=== PATIENT | male | born 1955 | race Two or more races ===

== ENCOUNTER → 2020-03-08 | Outpatient (CLI) | payer OTHER ==
--- NOTE | 2020-03-08 14:29 | KCIC ---
EXAM: Right knee, 3 views. HISTORY: Pain. COMPARISON: None. FINDINGS: 3 views of the right knee are obtained. There is medial compartment joint space narrowing with subchondral sclerosis and spurring. There is moderate lateral and patellofemoral compartment spurring. There is a small moderate joint effusion. IMPRESSION: 1. Moderate medial compartment predominant tricompartmental osteoarthritis of the right knee with small to moderate joint effusion. 2. No acute osseous finding. Electronically signed by: Kasia Joshua MD (03/08/2020 2:25 PM) [id number]
--- NOTE | 2020-03-08 15:04 | KCIC ---
Study: CR SHOULDER 2+V RIGHT Indication: Chronic right shoulder pain. Comparison: None. Findings: Alignment is maintained. Mild/moderate AC and mild glenohumeral joint arthrosis. Borderline narrowing of the acromiohumeral interval. Ill-defined lucency at the greater trochanter though this is favored in part related to overpenetration given relative hypoattenuation of the surrounding soft tissues as well. The overlying cortex is intact. The visualized ribs are unremarkable. Mid thoracic dextrocurvature and incompletely assessed degenerative changes of the spine. Impression: Mild/moderate acromioclavicular and mild glenohumeral joint arthrosis. No acute osseous abnormality. Electronically signed by: JESSE ENGLE MD (03/08/2020 3:01 PM) [id number]
--- NOTE | 2020-03-08 15:06 | KCIC ---
Study: CR ANKLE RIGHT 2V Indication: Chronic right ankle pain. Comparison: None. Findings: Isacc deformity. The distal Achilles appears mildly thickened and there is mild chronic scalloping at its calcaneal insertion. Small plantar calcaneal spur and possible faint mineralization within the adjacent plantar fascia. No acute fracture. Relatively mild scattered degenerative changes. Impression: The distal Achilles appears mildly thickened in the setting of a Isacc deformity. Recommend correlation for any symptoms of Achilles tendinopathy. No acute osseous abnormality or severe degenerative change. Electronically signed by: JESSE ENGLE MD (03/08/2020 3:03 PM) [id number]
== END | disposition home or self-care (01) ==
LOC: KCIC 13:17
PROVIDERS: ATTEND Family Medicine
DX: M19.071 Primary osteoarthritis, right ankle and foot (principal); M19.011 Primary osteoarthritis, right shoulder; M17.11 Unilateral primary osteoarthritis, right knee; M21.6X1 Other acquired deformities of right foot; M77.31 Calcaneal spur, right foot; M25.461 Effusion, right knee; G89.29 Other chronic pain
CPT/HCPCS: 73030; 73562; 73600